=== PATIENT | female | born 1990 | race African-American/Black ===

== ENCOUNTER 2020-02-04 10:13 | Emergency (ER) | payer BC ==
[2020-02-04 10:28] VITALS: BP 125/85; PULSE 95; TEMP 98.4; BMI 18.2
--- NOTE | 2020-02-04 10:30 | PDOC ---
Rapid Medical Evaluation Medical Evaluation: Allergies Allergy/AdvReac Type Severity Reaction Status Date / Time No Known Allergies Allergy Verified 02/04/20 10:25 02/04/20 10:25 29 yo F denies pmhx c/o itchy rectum x 1 week. denies rectal bleeding, constipation, increased sweating, bloating, excessive hunger. patient is a construction site manager. last anal intercourse 2 weeks ago. applying creams such as neosporin which has not helped. VSS ambulatory A/P: rectal itching to ED for eval
--- NOTE | 2020-02-04 11:11 | PDOC ---
History of Present Illness - General Chief Complaint: Rash Stated Complaint: SKIN RASH Time Seen by Provider: 02/04/20 10:41 History Source: Patient - History of Present Illness Timing/Duration: reports: week Past History - Medical History Allergies/Adverse Reactions: Allergies Allergy/AdvReac Type Severity Reaction Status Date / Time No Known Allergies Allergy Verified 02/04/20 10:25 COPD: No - Psycho-Social/Smoking History Smoking History: Never smoked Have you smoked in the past 12 months: No Information on smoking cessation initiated: No - Substance Abuse Hx (Audit-C & DAST Scrn) How often the patient has a drink containing alcohol: Never Score: In Men: 4 or > Positive; In Women: 3 or > Positive: 0 Screen Result (Pos requires Nsg. Audit-10AR): Negative In the last yr the pt used illegal drug/Rx for NonMed reason: No Score: Yes response is considered Positive: 0 Screen Result (Positive result requires Nsg. DAST-10): Negative Review of Systems - Review of Systems Constitutional: No: Chills, Fever ABD/GI: No: Blood Streaked Bowels, Constipated, Diarrhea, Rectal Bleeding *Physical Exam - Vital Signs Last Vital Signs Temp Pulse Resp BP Pulse Ox 98.4 F 95 H 17 125/85 98 02/04/20 10:25 02/04/20 10:25 02/04/20 10:25 02/04/20 10:25 02/04/20 10:25 - Physical Exam General Appearance: Yes: Appropriately Dressed. No: Apparent Distress HEENT: positive: Normal Voice Neck: positive: Supple Respiratory/Chest: negative: Respiratory Distress Rectal Exam: positive: normal rectal tone, other (no lesions seen). negative: hemorrhoids Integumentary: positive: Dry, Warm Neurologic: positive: Fully Oriented, Alert, Normal Mood/Affect Medical Decision Making - Medical Decision Making 02/04/20 11:10 29 yo F, no sig hx, here w/ itching and "dry skin" to rectal area x 1 week. No swelling, pain or lesions, States she engages in insertive anal sex, last time 2 weeks ago see exam Anal itching No hemorrhoids or other ab/nl seen on exam Dc w/ reassurance Discharge - Discharge Information Problems reviewed: Yes Clinical Impression/Diagnosis: Rectal irritation Condition: Good Disposition: HOME - Follow up/Referral - Patient Discharge Instructions Additional Instructions: Your exam is normal. Please keep site moisturize - Post Discharge Activity
== END 2020-02-04 11:12 | disposition home or self-care (01) ==
LOC: JERFT 10:13
DX: L29.0 Pruritus ani (principal)
CPT/HCPCS: 99282-25